=== PATIENT | female | born 1955 | race Caucasian/White ===

== ENCOUNTER 2018-11-05 09:49 | Emergency (ER) | payer OTHER ==
[~2018-11-05] VITALS: Ht 172.7 cm; Wt 68.0 kg
--- NOTE | 2018-11-05 10:36 | Diagnostic Imaging Report ---
Exam: Left foot radiographs-3 views Clinical History: Status post fall. Comparison: None. Findings: There is diffuse osteopenia. No evidence of acute fracture, malalignment, or soft tissue abnormality. The Lisfranc alignment is maintained. There is Achilles enthesopathy. There is a plantar calcaneal spur. Impression: No acute radiographic abnormality. Signed by: Dr. Robbie Velazquez MD on 11/05/2018 10:33 AM
--- OUTSIDE RECORDS SUMMARY | 2018-11-05 11:57 | XMS REPORT ---
Author Author [facility] Address Unknown Phone Unavailable Care Team Providers Care Director Of Spa And Guest Experience Name Role Phone Unavailable Unavailable Problems This patient has no known problems. Allergies, Adverse Reactions, Alerts This patient has no known allergies or adverse reactions. Medications This patient has no known medications. Results Test Description Test Time Test Comments Text Results Atomic Results Result Comments FOOT 3 VIEW [facility] 2018-11-05 10:30:00 [place] [id number] Patient Name: DL TENORIO MR #: [id number] : 1955 Age/Sex: 63/F Req #: [id number] Adm Physician: Ordered by: JOSÉ MIGUEL PICKENS MD Report #: [id number] Location: [facility] Room/Bed: Procedure: [id number] HOPD/FOOT 3 VIEW [facility] Exam Date: 11/05/18 Exam Time: 1016 REPORT STATUS: Signed Exam: Left foot radiographs-3 views Clinical History: Status post fall. Comparison: None. Findings: There is diffuse osteopenia. No evidence of acute fracture, malalignment, or soft tissue abnormality. The Lisfranc alignment is maintained. There is Achilles enthesopathy. There is a plantar calcaneal spur. Impression: No acute radiographic abnormality. Signed by: Dr. Douglas Drake MD on 11/05/2018 10:33 AM Dictated By: DOUGLAS DRAKE MD 1033 Transcribed By: LAUREEN on 11/05/18 1033 COPY TO: JOSÉ MIGUEL PICKENS MD
== END 2018-11-05 12:10 | disposition left against medical advice (07) ==
LOC: FSED 11:51
DX: M79.672 Pain in left foot (principal)

== ENCOUNTER 2020-01-01 16:43 | Emergency (ER) | payer MEDICARE, OTHER ==
[~2020-01-01] VITALS: Ht 175.3 cm; Wt 70.3 kg
[2020-01-01] MEDS ORDERED: IBUPROFEN 200 MG TAB PO STA (17:04)
[2020-01-01] MEDS ORDERED: IBUPROFEN 400 MG TAB ONE (17:10)
[2020-01-01] MEDS ORDERED: TETANUS/DIPHTHERIA TOX ADULT 0.5 ML SYR ONE (17:14)
[2020-01-01] MEDS ORDERED: TETANUS/DIPHTHERIA TOX ADULT 0.5 ML SYR IM ONE (17:15)
--- NOTE | 2020-01-01 17:59 | Diagnostic Imaging Report ---
X-ray of the right foot. HISTORY: Pain. COMPARISON: None available. FINDINGS: Bones: No acute displaced fracture. Osseous alignment is within normal limits. Joints: The joint spaces are well-maintained. Soft tissues: The soft tissues appear unremarkable. IMPRESSION: No acute radiographic abnormality. Signed by: Romeo Jenkins MD on 01/01/2020 5:55 PM
--- NOTE | 2020-01-01 18:00 | Diagnostic Imaging Report ---
X-ray of the ankle. HISTORY: Pain. COMPARISON: None available. FINDINGS: Bones: No acute displaced fracture. Osseous alignment is within normal limits. Joints: The joint spaces are well-maintained. Soft tissues: The soft tissues appear unremarkable. IMPRESSION: No acute radiographic abnormality. Signed by: Romeo Jenkins MD on 01/01/2020 5:56 PM
[2020-01-01] MEDS ORDERED: BACITRACIN ZINC 0.9GM TP ONE (18:30)
--- OUTSIDE RECORDS SUMMARY | 2020-01-01 18:32 | XMS REPORT | Continuity of Care Document ---
Author Author [facility] Organization [facility] Address [address] [place] [address] Dr. Hernández [address] [place] [id number] Phone Unavailable Care Team Providers Care Animal Nutrition Teacher Name Role Phone RICHARD GOMEZ MD PCP Bea VILLARphyrupali Unavailable Payers Payer Name Policy Type Policy Number Effective Date Expiration Date [facility] Ppo [id number] [facility] Problems This patient has no known problems. Allergies, Adverse Reactions, Alerts This patient has no known allergies or adverse reactions. Medications This patient has no known medications. Procedures This patient has no known procedures. Encounters Start Date/Time End Date/Time [facility]counter Type [facility] ID Source 2018-11-05 11:51:00 2018-11-05 12:10:00 Departed Emergency Room [facility] [id number] [facility] Results Test Description Test Time Test Comments Results Result Comments Source ANKLE 3 VIEW RT - HOPD 2020-01-01 17:56:00 [facility] [address] [place], [place] [address] Patient Name: DL TENORIO MR #: [id number] : 1955 Age/Sex: 64/F Req #: [id number] Adm Physician: Ordered by: CHRISTIANO VILLAR MD Report #: [id number] Location: [facility] Room/Bed: Procedure: [id number] HOPD/ANKLE 3 VIEW RT - HOPD Exam Date: Exam Time: REPORT STATUS: Signed X-ray of the ankle. HISTORY: Pain. COMPARISON: None available. FINDINGS: Bones: No acute displaced fracture. Osseous alignment is within normal limits. Joints: The joint spaces are well-maintained. Soft tissues: The soft tissues appear unremarkable. IMPRESSION: No acute radiographic abnormality. Signed by: Andrae Stewart MD on 01/01/2020 5:56 PM Dictated By: ANDRAE STEWART MD 55 Transcribed By: LAUREEN on 01/01/201755 COPY TO: CHRISTIANO VILLAR MD FOOT 3 VIEW RT - HOPD 2020-01-01 17:53:00 [place] [address] Patient Name: DL TENORIO MR #: [id number] : 1955 Age/Sex: 64/F Req #: [id number] Adm Physician: Ordered by: CHRISTIANO VILLAR MD Report #: [id number] Location: [facility] Room/Bed: Procedure: HOPD/FOOT 3 VIEW RT - HOPD Exam Date: 01/01/20 Exam Time: 1723 REPORT STATUS: Signed X-ray of the right foot. HISTORY: Pain. COMPARISON: None available. FINDINGS: Bones: No acute displaced fracture. Osseous alignment is within normal limits. Joints: The joint spaces are well-maintained. Soft tissues: The soft tissues appear unremarkable. IMPRESSION: No acute radiographic abnormality. Signed by: Andrae Stewart MD on 01/01/2020 5:55 PM Dictated By: ANDRAE STEWART MD 54 Transcribed By: LAUREEN on 01/01/201754 COPY TO: CHRISTIANO VILLAR MD FOOT 3 VIEW LT - HOPD 2018-11-05 10:30:00 [place] [address] Patient Name: DL TENORIO MR #: [id number] : 1955 Age/Sex: 63/F Req #: [id number] Adm Physician: Ordered by: JOSÉ MIGUEL PICKENS MD Report #: [id number] Location: [facility] Room/Bed: Procedure: [id number] HOPD/FOOT 3 VIEW LT - HOPD Exam Date: 11/05/18 Exam Time: 1016 REPORT [...] 10:33 AM Dictated By: DOUGLAS DRAKE MD 32 Transcribed By: LAUREEN on 11/05/181032 COPY TO: JOSÉ MIGUEL PICKENS MD
--- NOTE | 2020-01-01 18:59 | Emergency Department Note ---
History of Present Illnes History of Present Illness Chief Complaint: Extremity Trauma/Pain History of Present Illness This is a 64 year old female who presents with cc of right foot pain s/p sheets of plywood falling on her rt LE while trying to load them at a store this AM. Plywood initially hit right gorman and slid down her right leg landing on her right foot that was fully exposed due to wearing flip flops. No pain on gorman. Food pain proximal, midline, and anterior. No numbness, tingling, weakness. Pain very mild initially, but has gradually worsened. Worse with weight bearing. Historian: Patient Arrival Mode: Car Crystal Attacher Required: No Onset (how long ago): hour(s) Radiation: Reports non-radiation Severity: moderate Onset quality: sudden Duration (how long): hour(s) Timing of current episode: constant Progression: worsening Context: Reports trauma/injury; Denies recent illness Relieving factors: other (weight bearing) Exacerbating factors: rest Associated symptoms: Reports denies other symptoms (no other injuries) Treatments prior to arrival: none Past Medical/Family History Physician Review I have reviewed the patient's past medical and family history. Any updates have been documented here. Past Medical History Recent Fever: No Clinical Suspicion of Infectio: No New/Unexplained Change in Ment: No Past Medical History: Hypertension, Hyperlipedemia Past Surgical History: None Other Surgery: cervial Social History Smoking Cessation: Never Smoker Alcohol Use: Occasional Any Illegal Drug Use: No Other Any Pre-Existing Lines (PICC,: No Review of Systems Review of Systems Constitutional: Reports no symptoms; Denies chills, Denies fever EENTM: Denies throat pain Cardiovascular: Reports no symptoms Respiratory: Reports no symptoms Gastrointestinal: Reports no symptoms Genitourinary: Denies dysuria Musculoskeletal: Reports as per HPI Integumentary: Reports as per HPI Neurological: Denies headache, Denies numbness, Denies paresthesia, Denies tingling Physical Exam Related Data Allergies: Coded Allergies: No Known Allergies (Unverified , 06/16/11) Triage Vital Signs Vital Signs Date Time Temp Pulse Resp B/P (MAP) Pulse Ox O2 Delivery O2 Flow Rate FiO2 01/01/20 16:53 99.1 104 16 151/85 99 Room Air Physical Exam CONSTITUTIONAL Constitutional: Present well-developed, Present well-nourished HENT HENT: Present normocephalic, Present atraumatic, Present oropharynx clear/moist, Present nose normal HENT L/R: Present left ext ear normal, Present right ext ear normal EYES Eyes: Reports PERRL, Reports conjunctivae normal NECK Neck: Present ROM normal PULMONARY Pulmonary: Present effort normal, Present breath sounds normal CARDIOVASCULAR Cardiovascular: Present regular rhythm, Present heart sounds normal, Present capillary refill normal, Present normal rate GASTROINTESTINAL Abdominal: Present soft, Present nontender, Present bowel sounds normal GENITOURINARY SKIN Skin: Present other (abrasions right lower leg anerior midline that are linear running proximal to distal in relation to leg); Absent rash MUSCULOSKELETAL Musculoskeletal: Present tenderness, Present swelling (Rt LE: swelling over lower aspect of rt lateral malleolus, this area is non-tender with no ecymosis. Rt. foot with swelling, ecymosis, and tenderness over the proximal aspect of the midline anterior foot.) NEUROLOGICAL Neurological: Present alert, Present oriented x 3, Present no gross motor or sensory deficits PSYCHOLOGICAL Psychological: Present mood/affect normal, Present judgement normal Results Imaging Imaging Comments X-ray of the right foot. HISTORY: Pain. COMPARISON: None available. FINDINGS: Bones: No acute displaced fracture. Osseous alignment is within normal limits. Joints: The joint spaces are well-maintained. Soft tissues: The soft tissues appear unremarkable. IMPRESSION: No acute radiographic abnormality. Signed by: Romeo Jenkins MD on 01/01/2020 5:55 PM X-ray of the ankle. HISTORY: Pain. COMPARISON: None available. FINDINGS: Bones: No acute displaced fracture. Osseous alignment is within normal limits. Joints: The joint spaces are well-maintained. Soft tissues: The soft tissues appear unremarkable. IMPRESSION: No acute radiographic abnormality. Signed by: Romeo Jenkins MD on 01/01/2020 5:56 PM Assessment & Plan Medical Decision Making MDM Differential dx includes fracture, dislocation, sprain, strain, contusion. Antibiotic ointment applied to gorman and dressed. Foot ivonne wrapped. Reassessment Reassessment time: 18:01 Reassessment feels better Assessment & Plan Final Impression: (1) Contusion, foot (2) Abrasion of right lower leg Depart Disposition: HOME, SELF-CARE Last Vital Signs Date Time Temp Pulse Resp B/P (MAP) Pulse Ox O2 Delivery O2 Flow Rate FiO2 01/01/20 16:53 99.1 104 16 151/85 99 Room Air Medications in the ED Ibuprofen 800 mg STK-MED ONCE .ROUTE ; Start 01/01/20 at 17:10; Stop 01/01/20 at 17:04; Status DC Ibuprofen 800 mg NOW STAT PO ; Start 01/01/20 at 17:04; Stop 01/01/20 at 17:05; Status UNV CHRISTIANO VILLAR MD Jan 01, 2020 17:16
== END 2020-01-01 18:17 | disposition home or self-care (01) ==
LOC: FSED 17:10
DX: S90.31XA Contusion of right foot, initial encounter (principal); S80.811A Abrasion, right lower leg, initial encounter; M79.671 Pain in right foot; W22.8XXA Striking against or struck by other objects, initial encounter; Y92.512 Supermarket, store or market as the place of occurrence of the external cause; I10 Essential (primary) hypertension; E78.5 Hyperlipidemia, unspecified
CPT/HCPCS: 90714; 99283

== ENCOUNTER 2022-04-01 15:50 | Emergency (ER) | payer MEDICARE, OTHER ==
[~2022-04-01] VITALS: Ht 175.3 cm; Wt 70.8 kg
[~2022-04-01 15:50] MED LIST: CIPRO500 MG PO; DIFLUCAN100 MG PO; HYDROCHLOROTHIA25 MG PO; LOSARTAN POTASS25 MG PO; NAPROXEN250 MG PO; POTASSIUM CHLO10 ME1 PO; PROZAC40 MG PO; SIMVASTATIN20 MG PO
[2022-04-01] MEDS ORDERED: IBUPROFEN200 MG PO (16:47)
[2022-04-01] MEDS ORDERED: CEFDINIR300 MG PO (16:47)
== END 2022-04-01 17:07 | disposition home or self-care (01) ==
LOC: FSED 16:09
DX: N39.0 Urinary tract infection, site not specified (principal); M54.50 Low back pain, unspecified; I10 Essential (primary) hypertension; Z79.899 Other long term (current) drug therapy; Z87.442 Personal history of urinary calculi
CPT/HCPCS: 74176; 81003; 99283